=== PATIENT | female | born 1995 | race Caucasian/White ===

== ENCOUNTER 2020-01-22 08:52 | Emergency (ER) | payer MEDICAID ==
[~2020-01-22] VITALS: Ht 162.6 cm; Wt 94.4 kg
[2020-01-22 09:56] LABS: CLARITY,URINE SLIGHTLY CLOUDY (Clear); COLOR,URINE YELLOW (Yellow); GLUCOSE, URINE NEGATIVE (Neg); KETONES,URINE 15 mg/dl (Neg); LEUKOCYTE ESTERASE ,URINE NEGATIVE (Neg); NITRITES, URINE NEGATIVE (Neg); OCCULT BLOOD,URINE NEGATIVE (Neg); PH,URINE 8.5 (4.8-8.0); PROTEIN,URINE TRACE mg/dl (Neg)
[2020-01-22 09:57] LABS: UA COLLECTION TYPE CLN CATCH MIDSTREAM
[2020-01-22 10:03] LABS: BACTERIA,URINE 1+ /HPF (Neg); MUCUS STRANDS MODERATE /LPF (Neg); RBC,URINE 0-2 /HPF (0-2); SQUAMOUS EPITHELIAL CELL,UR MODERATE /LPF (FEW); WBC,URINE 0-4 /HPF (0-4)
[2020-01-22 10:06] LABS: URINE HCG NEGATIVE (NEG)
[2020-01-22 10:57] LABS: BASOPHILS # (AUTO) 0.1 X10'3 (0-0.2); BASOPHILS % (AUTO) 0.6 % (0-1); EOSINOPHILS % (AUTO) 0.3 % (0-6); HEMATOCRIT 47.2 % (35.0-45.0); HEMOGLOBIN 16.2 g/dl (12.0-16.0); LYMPHOCYTES # (AUTO) 2.8 X10'3 (1.1-4.8); LYMPHOCYTES % (AUTO) 21.3 % (21-51); MEAN CORPUSCULAR HEMOGLOBIN 30.8 PG (27.0-31.0); MEAN CORPUSCULAR HGB CONC 34.4 g/dL (33.0-36.5); MEAN CORPUSCULAR VOLUME 89.4 FL (78-98); MEAN PLATELET VOLUME 9.3 FL (7.4-10.4); MONOCYTES # (AUTO) 1.2 X10'3 (0-0.9); MONOCYTES % (AUTO) 8.7 % (2-12); NEUTROPHILS # (AUTO) 9.2 X10'3 (1.8-7.7); NEUTROPHILS % (AUTO) 69.1 % (42-75); PLATELET COUNT 319 X10'3 (140-440); RED BLOOD COUNT 5.28 X10'6 (4.20-5.60); RED CELL DISTRIBUTION WIDTH 12.9 % (11.5-14.5); WHITE BLOOD COUNT 13.4 X10'3 (4.5-11.0)
[2020-01-22 11:10] LABS: ALANINE AMINOTRANSFERASE 25 U/L (12-78); ALBUMIN/GLOBULIN RATIO 1.2 (1.1-1.5); ALKALINE PHOSPHATASE 90 IU/L (46-116); ANION GAP 11 (8-16); ASPARTATE AMINO TRANSFERASE 23 U/L (10-37); BILIRUBIN,TOTAL 1.3 MG/DL (0.1-1.0); BLOOD UREA NITROGEN 6 MG/DL (7-18); BUN/CREATININE RATIO 7.5 (6.6-38.0); CHLORIDE 93 MMOL/L (99-107); GLUCOSE 118 MG/DL (70-104); LIPASE 88 U/L (73-393); SODIUM 134 MMOL/L (135-145); TOTAL CARBON DIOXIDE 30.2 MMOL/L (24-32); TOTAL PROTEIN 9.2 G/DL (6.4-8.2); eGFR 90 ML/MIN
[2020-01-22] MEDS ORDERED: normal saline 1000ML IV soln IVB ONE (11:10)
[2020-01-22] MEDS ORDERED: proCHLORperazine 10 MG/2 ml inj IV ONE (11:10)
[2020-01-22] MEDS ORDERED: famotidine/PF 10 mg/ml inj IV ONE (11:10)
[2020-01-22] MEDS ORDERED: pantoprazole 40 MG vial IV ONE (11:10)
[2020-01-22 11:23] LABS: POTASSIUM 2.4 MMOL/L (3.5-5.1)
[2020-01-22] MEDS ORDERED: potassium Cl 20 mEq SR tablet PO ONE (11:25)
[2020-01-22] MEDS ORDERED: PANT-47 PO (13:15)
[2020-01-22] MEDS ORDERED: POTA-82 PO (13:19)
[2020-01-22 13:57] VITALS: BP 117/81
== END 2020-01-22 14:05 | disposition home or self-care (01) ==
LOC: ER 08:53
DX: R11.2 Nausea with vomiting, unspecified (principal); F17.200 Nicotine dependence, unspecified, uncomplicated; F15.10 Other stimulant abuse, uncomplicated; Z88.2 Allergy status to sulfonamides; Z79.899 Other long term (current) drug therapy
CPT/HCPCS: 36415; 76700; 80053; 81001; 81025; 83690; 85025; 96361; 96374; 96375; 99284; C9113; J0780; J3490; J7030

== ENCOUNTER 2020-01-22 22:51 | Emergency (ER) | payer MEDICAID ==
[~2020-01-22] VITALS: Ht 162.6 cm; Wt 93.9 kg
[~2020-01-22 22:51] MED LIST: PANT-47 PO; POTA-82 PO
[2020-01-22] MEDS ORDERED: proCHLORperazine 10 MG/2 ml inj IM ONE (23:40)
[2020-01-22] MEDS ORDERED: magnesium citrate 296ml oral solution PO ONE (23:45)
[2020-01-22] MEDS ORDERED: normal saline 1000ml 1,000 ML IV ONE (23:50)
--- NOTE | 2020-01-23 00:30 | NUR ---
GAVE PT APPLE JUICE, +N/V, Eyad MENDEZ AWARE, 1ST LITER NS INFUSING W/O
[2020-01-23 02:09] VITALS: BP 134/75
== END 2020-01-23 02:10 | disposition home or self-care (01) ==
LOC: ER 22:51
DX: R11.2 Nausea with vomiting, unspecified (principal); K59.00 Constipation, unspecified; F17.200 Nicotine dependence, unspecified, uncomplicated; F12.90 Cannabis use, unspecified, uncomplicated; Z88.2 Allergy status to sulfonamides; Z79.899 Other long term (current) drug therapy
CPT/HCPCS: 74176; 96360; 96372; 99284; J0780; J7030; 96361